=== PATIENT | male | born 1995 | race Caucasian/White ===

== ENCOUNTER 2020-02-05 03:26 | Emergency (ER) | payer MEDICAID ==
[~2020-02-05] VITALS: Ht 170.2 cm; Wt 97.5 kg
[2020-02-05 05:26] LABS: CHLORIDE 101 mEq/L (98-107)
[2020-02-05 05:27] LABS: D-DIMER 0.19 mg/L FEU (<0.50); INR 0.9; PARTIAL THROMBOPLASTIN TIME 25.4 sec (23.4-31.0); PROTHROMBIN TIME 9.9 sec (9.6-11.0)
[2020-02-05 05:41] LABS: EOSINOPHILS % 3.8 % (0.0-5.0); HEMATOCRIT. 45.1 % (42.0-52.0); HEMOGLOBIN. 15.8 g/dL (14.0-18.0); LYMPHOCYTES % 21.6 % (20.0-50.0); MEAN CORPUSCULAR HEMOGLOBIN 33.5 pg (28.0-32.0); MEAN CORPUSCULAR VOLUME 95.2 fL (80.0-94.0); NEUTROPHILS % 63.6 % (40.0-76.0); RED CELL DISTRIBUTION WIDTH 13.3 % (11.6-14.6)
[2020-02-05 05:44] LABS: PLATELET 250 x1000/uL (130-400); RED BLOOD CELL COUNT 4.66 mill/uL (4.7-6.1)
[2020-02-05] MEDS ORDERED: ASPIRIN 81MG TABLET PO ONE (06:00)
[2020-02-05] MEDS ORDERED: POTASSIUM CHLORIDE 20MEQ TABLET SR PO ONE (06:00)
[2020-02-05 06:44] VITALS: BP 158/97
== END 2020-02-05 09:09 | disposition home or self-care (01) ==
LOC: ER 03:26
DX: R06.02 Shortness of breath (principal); E87.6 Hypokalemia
CPT/HCPCS: 36415; 71045; 80053; 83880; 84484; 85025; 85379; 85610; 85730; 93005; 99285; Z7610